=== PATIENT | male | born 1950 | race Caucasian/White ===

== ENCOUNTER 2019-11-08 11:11 | Observation (INO) | payer MEDICARE, SELFPAY ==
--- NOTE | ~2019-11-08 | XR_ITS ---
EXAMINATION: XR chest 1V portable DATE: 11/08/2019 12:26 INDICATION: Fever. TECHNIQUE: A single frontal view of the chest was obtained. COMPARISON: Chest 2 views 01/13/2014, chest CT 01/13/2014 FINDINGS: The chest demonstrates clear lungs without pneumonia, pleural effusion, or pneumothorax. Th e heart size is normal. IMPRESSION: 1. No acute cardiopulmonary disease. Reviewed, dictated and finalized at location A.
[2019-11-08 11:25] VITALS: BP 143/55; PULSE 100; RESP 18; TEMP 37.7; O2SAT 97
[2019-11-08 11:33] VITALS: BP 151/66; PULSE 103; RESP 20; TEMP 38.2; O2SAT 98
[2019-11-08 12:02] LABS: Basophils Absolute Auto 0.1 K/mm3 (0.0-0.1); Basophils Percent Auto 0.3 % (0.2-1.2); Eosinophils Percent Auto 0.3 % (0-4.4); Hematocrit 43.8 % (42.0-52.0); Hemoglobin 14.2 g/dL (14.0-18.0); Immature Granulocyte Absolute 0.12 K/mm3 (0.00-0.031); Immature Granulocyte Percent A 0.8 % (0-0.5); Lymphocytes Absolute Auto 0.44 K/mm3 (0.9-3.2); Lymphocytes Percent Auto 3.1 % (18.3-44.2); Mean Corpuscular HGB Conc 32.4 g/dl (32-36); Mean Corpuscular Hemoglobin 27.9 pg (26-34); Mean Corpuscular Volume 86.1 fl (80-100); Monocytes Absolute Auto 0.8 K/mm3 (0.1-0.6); Monocytes Percent Auto 5.3 % (2.6-8.5); Neutrophils Absolute Auto 12.9 K/mm3 (1.3-6.7); Neutrophils Percent Auto 90.2 % (45.5-73.1); Platelet Count Result 210 k/mm3 (150-375); Red Blood Count 5.09 M/mm3 (4.6-6.20); Red Cell Distribution Width 13.8 % (11.5-14.5); White Blood Count 14.3 K/mm3 (4.5-10.0)
[2019-11-08 12:12] LABS: INR 1.1; Prothrombin Time 13.5 Seconds (11.1-14.7)
[2019-11-08 12:13] LABS: Partial Thromboplastin Time 23.4 SECONDS (22.3-36.8)
[2019-11-08 12:17] LABS: Lactic Acid Reflex 2.2 mmol/L (0.7-2.1)
[2019-11-08 12:20] LABS: Alanine Aminotransferase 28 U/L (4-50); Albumin Level 3.8 g/dL (3.5-5.1); Alkaline Phosphatase 92 U/L (38-126); Aspartate Amino Transferase 28 U/L (17-59); Bilirubin,Total 0.4 mg/dL (0.2-1.3); Blood Urea Nitrogen 19 mg/dL (9-20); CRP 0.8 mg/dL (<1.0); Calcium 8.8 mg/dL (8.4-10.2); Carbon Dioxide 24 mmol/L (22-30); Chloride 103 mmol/L (98-107); Estimated CRCL calculation 57 ml/min; Estimated Glomerular Filt Rate > 60; Glucose 163 mg/dL (75-110); Sodium 135 mmol/L (137-145)
--- NOTE | 2019-11-08 12:50 | ED.GENADULT ---
HPI - General Adult General Chief complaint: Fever Stated complaint: fever Time Seen by Provider: 11/08/19 12:21 History of Present Illness HPI narrative: Patient is a 69 y/o male complaining of fever starting this morning. He states that he was driving and notice shaking chills. He went home and checked his temperature, which was 102.2. He took Ibuprofen, which relieved his chills. He denies any cough, sore throat, vomiting, diarrhea or dysuria. He denies any pain. Related Data Allergies Allergy/AdvReac Type Severity Reaction Status Date / Time No Known Allergies Allergy Unverified 01/13/14 21:16 Review of Systems Constitutional: Constitutional: Reports chills, Reports fever(s), Denies headache(s) and Denies weakness Eyes: Eyes: Denies blurry vision ENT: Denies headache(s) and Denies neck pain Cardiovascular: Cardiovascular: Denies chest pain and Denies dyspnea Respiratory: Respiratory: Denies cough and Denies dyspnea Gastrointestinal: Gastrointestinal: Denies abdominal pain, Denies diarrhea, Denies nausea and Denies vomiting Genitourinary: Genitourinary: Denies hematuria and Denies dysuria Musculoskeletal: Musculoskeletal: Denies back pain and Denies neck pain Neurologic: Denies headache(s) and Denies weakness PMFSH Family History Family History Mother Patient's mother is , Onset Age: 91 Father Carcinoma of colon, Onset Age: 84 Family history of lung cancer, Onset Age: 84 Family history of primary malignant neoplasm of liver, Onset Age: 84 Family history of malignant neoplasm of bone, Onset Age: 84 Social History Social History Smoking status: Never smoker Alcohol intake: current Gender identity (if verbalized by the patient): Male Exam Const: General: no acute distress and well developed Orientation/consciousness: oriented to person, oriented to place, oriented to time and patient oriented x3 HENMT: Head: normocephalic Ears: external ears normal General nose exam: Normal external nose present Eyes: General: appearance normal, both eyes and all related structures Conjunctivae: conjunctivae normal Neck: Neck: normal visual inspection and full ROM Chest: Chest palpation & inspection: normal inspection of the chest and no tenderness Resp: Effort & Inspection: normal respiratory effort Auscultation: clear to auscultation bilaterally Cardio: Rate: regular rate Rhythm: regular rhythm GI: GI Palp: No abdominal tenderness and Yes Soft to palpation Skin: General skin exam: normal color and turgor normal Neuro: General: oriented to person, oriented to place, oriented to time and patient oriented x3 Cognition (Neuro): normal cognition Extrem: General: normal to inspection, full ROM and no pedal edema Psych: Appearance: grossly normal Mental Status: mental status grossly normal Affect: normal affect Course Consultations Consultation #1: Discussed with VIRGIL Muñiz, who agrees to admit to Dr. Saavedra Date: 11/08/19 Time: 12:58 Vital Signs Vital signs: Vital Signs Temperature 37.7 C H 11/08/19 11:25 Pulse Rate 100 11/08/19 11:25 Respiratory Rate 18 11/08/19 11:25 Blood Pressure 143/55 H 11/08/19 11:25 Pulse Oximetry 97 11/08/19 11:25 Temperature 38.2 C H 11/08/19 11:33 Pulse Rate 103 H 11/08/19 11:33 Respiratory Rate 20 11/08/19 11:33 Blood Pressure 151/66 H 11/08/19 11:33 Pulse Oximetry 98 11/08/19 11:33 Medical Decision Making Vital Signs Vital Signs: Vital Signs Temperature 37.7 C H 11/08/19 11:25 Pulse Rate 100 11/08/19 11:25 Respiratory Rate 18 11/08/19 11:25 Blood Pressure 143/55 H 11/08/19 11:25 Pulse Oximetry 97 11/08/19 11:25 Temperature 38.2 C H 11/08/19 11:33 Pulse Rate 103 H 11/08/19 11:33 Respiratory Rate 20 11/08/19 11:33 Blood Pressure 151/66 H 11/08/19 11:33 Puls
[2019-11-08] MEDS: ACETAMINOPHEN 325 MG TABLET 650 MG PO (12:57)
[2019-11-08 14:00] LABS: Add Urine Microscopic? YES; Appearance Urine Clear (Clear); Bacteria Urine Trace /hpf; Bilirubin Urine Negative (Negative); Blood Urine Negative (Negative); Color Urine Yellow (Yellow); Glucose Urine UA 1+ mg/dL (Negative); Ketones Urine Negative (Negative); Leukocyte Esterase Ur Negative LEU/UL (Negative); Mucus Urine Rare /lpf; Nitrate Urine Negative (Negative); Protein Urine Negative (Negative); RBC Urine 0-2 /hpf (0-2); Specific Grav Ur 1.018 (1.001-1.035); Urobilinogen Urine Negative mg/dL (<2.0); WBC Urine 0-3 /hpf
[2019-11-08 14:50] VITALS: BP 126/56; PULSE 73; RESP 16; TEMP 37; O2SAT 98
[2019-11-08 15:09] LABS: Reflex Lactic Acid Yes or No Add Lactic
[2019-11-08 15:40] VITALS: BMI 27.1
--- NOTE | 2019-11-08 15:46 | ADMGEN ---
This patient, Mitlu Hernandez, was admitted to [facility] Surg Room 323-01. Patient/family oriented to hospital policies and general routines including ID bracelet, bed and alarms, visiting hours, pain management, procedures, bathroom and other care routines, personal items, smoking policy, room service/diet, and visiting hours. Valuables list has been completed. Information on how to activate the Rapid Response Team has been discussed. Patient/Family are encouraged to report perceived risks to care and to ask questions if they do not understand what they are told or what they should do.
--- NOTE | 2019-11-08 16:21 | PM.IMHP ---
H&P: HPI History of Present Illness Chief complaint: sepsis Narrative: Mitul Hernandez is a 69 year old male Who has a history of hyperlipidemia and diabetes. The patient did not fill before today. He had not been around any ill contacts. The patient stated that he surge to drive this morning and he felt very shaky and fell he is running a fever chills as well. The patient turned his car around and drove back from [place] to his home. Patient stated that he has been trying to use social isolation. The patient stated that once he was at home and checked his temperature was 102.2?. Six some ibuprofen in the chills were relieved and shakiness was relieved as well. Patient denies any cough he has no nausea no vomiting no diarrhea no abdominal pain no urinary symptoms no skin rashes or lesions or ulcerations. He denies any discomfort. His blood sugar was 163. The patient called his primary care doctor who instructed the patient to come to the emergency room. Chest x-ray was negative. Urinalysis was negative. His white count was noted to be 14.3. His influenza swab was negative. Patient is being tested for covid 19. The patient was given Tylenol and IV fluids in the emergency room. He was given a 1 time dose of Rocephin. Date of service 11/08/2019 blood cultures are pending. Review of Systems Review of Systems: All systems reviewed & are unremarkable except as noted in HPI and below Constitutional: Constitutional: Reports as per HPI and Reports no additional constitutional complaints Eyes: Eyes: Reports as per HPI and Reports no additional eye complaints ENT: Reports system reviewed and no additional complaints, except as documented and Reports Normal hearing present Cardiovascular: Cardiovascular: Reports no additional cardiovascular complaints Respiratory: Respiratory: Reports no additional respiratory complaints and Reports no additional respiratory complaints Gastrointestinal: Gastrointestinal: Reports as per HPI and Reports no additional gastrointestinal complaints Musculoskeletal: Musculoskeletal: Reports no additional musculoskeletal complaints Integumentary/Breasts: Skin/Breast: Reports system reviewed and no additional complaints, except as docu and Reports as per HPI Neurologic: Reports system reviewed and no additional complaints, except as documented, Reports as per HPI and Reports Normal hearing present Psychiatric: Psychiatric: Reports no additional psychiatric complaints and Reports as per HPI Endocrine: Endocrine: Reports no additional endocrine complaints Hematologic/Lymphatic: Hematologic/Lymphatic: Reports no additional hematologic/lymphatic complaints Allergic/Immunologic: Allergic/Immunologic: Reports no additional allergic/immunologic complaints [facility] Surgical History Surgical History (Updated 11/08/19 @ 16:32 by Mary Kay Hammond NP) No pertinent past surgical history Family History Family History Mother Patient's mother is , Onset Age: 91 Father Carcinoma of colon, Onset Age: 84 Family history of lung cancer, Onset Age: 84 Family history of primary malignant neoplasm of liver, Onset Age: 84 Family history of malignant neoplasm of bone, Onset Age: 84 Social History Social History (Updated 11/08/19 @ 16:34 by Mary Kay Hammond NP) Social History: 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 The patient desires to be a full code. He has 1 daughter. The patient is a lifelong nonsmoker. He does not use marijuana or illicit drugs. He does socially drink a beer occasionally. Smoking status: Never smoker Alcohol intake: current Drinks per week: 2 Substance use: never Gender identity (if verbalized by the patient): Male Spiritual care concerns: No Meds Home Medications an
[2019-11-08 18:00] VITALS: BP 152/66; PULSE 73; RESP 18; TEMP 37.4; O2SAT 96
[2019-11-08 18:25] LABS: Glucose Point of Care 156 (65-105)
[2019-11-08 22:00] VITALS: BP 149/66; PULSE 68; RESP 18; TEMP 37; O2SAT 98
[2019-11-09 00:11] LABS: SARS-CoV-2 RNA PCR Negative
[2019-11-09 02:00] VITALS: BP 153/64; PULSE 60; RESP 16; TEMP 36.7; O2SAT 98
[2019-11-09 06:00] VITALS: BP 164/74; PULSE 62; RESP 16; TEMP 36.8; O2SAT 100
[2019-11-09 06:03] LABS: Basophils Percent Auto 0.3 % (0.2-1.2); Eosinophils Absolute Auto 0.1 K/mm3 (0-0.3); Eosinophils Percent Auto 1.5 % (0-4.4); Hematocrit 40.6 % (42.0-52.0); Hemoglobin 12.7 g/dL (14.0-18.0); Immature Granulocyte Absolute 0.07 K/mm3 (0.00-0.031); Immature Granulocyte Percent A 0.9 % (0-0.5); Lymphocytes Absolute Auto 0.88 K/mm3 (0.9-3.2); Lymphocytes Percent Auto 11.8 % (18.3-44.2); Mean Corpuscular HGB Conc 31.3 g/dl (32-36); Mean Corpuscular Hemoglobin 27.3 pg (26-34); Mean Corpuscular Volume 87.1 fl (80-100); Mean Platelet Volume 9.6 fl (7.4-10.4); Monocytes Absolute Auto 0.5 K/mm3 (0.1-0.6); Monocytes Percent Auto 7.2 % (2.6-8.5); Neutrophils Absolute Auto 5.9 K/mm3 (1.3-6.7); Neutrophils Percent Auto 78.3 % (45.5-73.1); Platelet Count Result 176 k/mm3 (150-375); Red Blood Count 4.66 M/mm3 (4.6-6.20); Red Cell Distribution Width 14.1 % (11.5-14.5); White Blood Count 7.5 K/mm3 (4.5-10.0)
[2019-11-09 06:24] LABS: Alanine Aminotransferase 27 U/L (4-50); Albumin Level 3.2 g/dL (3.5-5.1); Alkaline Phosphatase 65 U/L (38-126); Aspartate Amino Transferase 24 U/L (17-59); Bilirubin,Total 0.3 mg/dL (0.2-1.3); Blood Urea Nitrogen 14 mg/dL (9-20); Calcium 8.7 mg/dL (8.4-10.2); Carbon Dioxide 27 mmol/L (22-30); Chloride 106 mmol/L (98-107); Estimated CRCL calculation 57 ml/min; Estimated Glomerular Filt Rate > 60; Glucose 150 mg/dL (75-110); Lipase 322 U/L (23-300); Magnesium 1.8 mg/dL (1.6-2.3); Potassium 4.9 mmol/L (3.4-5.0); Sodium 139 mmol/L (137-145)
[2019-11-09 06:48] LABS: CRP 4.4 mg/dL (<1.0)
[2019-11-09 09:13] LABS: Glucose Point of Care 145 (65-105)
[2019-11-09 09:19] LABS: Glucose Point of Care 155 (65-105)
[2019-11-09] MEDS: PIOGLITAZONE HCL 45 MG TABLET PO (10:26)
[2019-11-09] MEDS: ATORVASTATIN 40 MG TABLET PO (10:27)
[2019-11-09 11:49] LABS: Glucose Point of Care 234 (65-105)
[2019-11-09] MEDS: INSULIN ASPART (*BKC) 100 UNITS/ML SUB-Q (12:54)
[2019-11-09 14:18] VITALS: BP 150/72; PULSE 64; RESP 16; TEMP 36.9; O2SAT 100
--- NOTE | 2019-11-09 14:49 | PM.DS ---
DS: Admitting Diagnosis Admitting Diagnosis Admitting Diagnosis: Fever, unspecified DS: Discharge Diagnosis Discharge Diagnosis (1) Fever: Qualifiers: Fever type: unspecified Qualified Code(s): R50.9 - Fever, unspecified Code(s): R50.9 - Fever, unspecified Status: Acute Assessment and Plan: Etiology unknown. Could be viral. We have no source of an underlying infection, normal CXR, UA. Lactic acid was initially elevated but normalized and could be elevated secondary to dehydration vs virus. WBC normalized today from 14,300 to 7,500. Blood cultures show no growth. COVID was negative on arrival. The patient is completely asymptomatic at this time, without fever, chills, cough, shortness of breath, abdominal pain or any other concerning issues. The patient was bitten by two Ticks in August 2019 and reports intermittent itching to the area, but right now he has no symptoms related to the tick bites. The only abnormality to his labs from today is an elevation to his CRP which could be from COVID. His vital signs have otherwise been normal without any fever within 24 hours, tachycardia, normal respiratory rate, oxygenation 100% on room air and normal blood pressure. Informed the patient that he could still have COVID and his symptoms could be early and in a few days he could begin to have worsening symptoms. Told him he needs to check his temperature a few times per day and if he is not feeling well. If he develops a cough, shortness of breath, or worsening fever and chills he needs to call his doctor and possibly be evalauted again for COVID vs possible Lyme Disease or ehrlichiosis. Will have him follow up with his primary care provider within 1 week of discharge for further evaluation. (2) SIRS (systemic inflammatory response syndrome): Code(s): R65.10 - Systemic inflammatory response syndrome (SIRS) of non-infectious origin without acute organ dysfunction Status: Acute Assessment and Plan: Initially they said he met criteria for sepsis we have no underlying infection to treat. Sirs criteria met due to elevated lactic acidosis level, fever, leukocytosis but most likely due to a virus. He will not be given any antibiotics upon discharge and will have him follow-up with his primary care provider for further evaluation and treatment 1 week (3) Type 2 diabetes mellitus without complication, without long-term current use of insulin: Code(s): E11.9 - Type 2 diabetes mellitus without complications Status: Chronic Assessment and Plan: Serum glucose this morning was 150 the patient states because he is not taking his oral medication last night. Will have him continue his home medications at discharge. (4) Suspected COVID-19 virus infection: Code(s): Z20.828 - Contact with and (suspected) exposure to other viral communicable diseases Status: Acute Assessment and Plan: Initially the patient was placed in isolation, but COVID test came back negative. He was taken off of isolation. Informed the patient that he could be having early symptoms of COVID and still be negative at this time. He is asymptomatic we told him if he develops any worsening symptoms cough, shortness of breath, continue fevers he needs to be retested by his primary care provider or come to emergency department for further evaluation. (5) Dyslipidemia, goal LDL below 100: Code(s): E78.5 - Hyperlipidemia, unspecified Status: Chronic Assessment and Plan: continue with atorvastatin DS: Summary Hospital Course Reason for hospitalization: Patient is a 69 year old man with a history of diabetes, presented to the emergency ro
--- NOTE | 2019-11-15 11:14 | PC.NURSE ---
Blood cx is negative
--- NOTE | 2019-11-15 11:22 | PC.NURSE ---
Blood cx is negative.
== END 2019-11-09 16:40 | disposition home or self-care (01) ==
LOC: ANHED 13:05 → ANH3MEDSUR 13:34
PROVIDERS: General Practice; Nurse Practitioner; Physician Assistant; Admitting Provider Internal Medicine; Emergency Provider Emergency Medicine; PCP Internal Medicine; Visit Provider Family Medicine
DX: R50.9 Fever, unspecified (principal); R65.10 Systemic inflammatory response syndrome (SIRS) of non-infectious origin without acute organ dysfunction; Z20.828 Contact with and (suspected) exposure to other viral communicable diseases; D72.828 Other elevated white blood cell count; R79.82 Elevated C-reactive protein (CRP); R74.0 Nonspecific elevation of levels of transaminase and lactic acid dehydrogenase [LDH]; E78.5 Hyperlipidemia, unspecified; E11.9 Type 2 diabetes mellitus without complications; Z79.84 Long term (current) use of oral hypoglycemic drugs
CPT/HCPCS: 36415; 71045; 80053; 81001; 83605; 83690; 83735; 84443; 85025; 85610; 85730; 86140; 87040; 87635; 87804; 96361; 96365; 99285; A9270; C9803; G0378; J0696; J1815; J7120; U0003

== ENCOUNTER 2021-08-16 01:39 | Day surgery (SDC) | payer MEDICARE, SELFPAY ==
[2021-08-02 14:08] VITALS: BMI 27.3
--- NOTE | 2021-08-16 08:05 | P.PNAN_ITS ---
Anes - Initial Pre Proc Eval Procedure: Operation Date: 08/16/21 10:15 Proposed Procedures p Screening Colonoscopy - Pj Rodriguez MD Date/Time: 08/16/21 08:05 Surgeon: Pj Rodriguez MD Pre Op Diagnosis: family hx of colon ca Patient Data Age: 71 Gender: M Height: 1.68 m Weight: 77 kg Allergies Allergy/AdvReac Type Severity Reaction Status Date / Time No Known Allergies Allergy Verified 08/16/21 08:47 Home Medications Medication Instructions Recorded Confirmed Type blood sugar diagnostic #100 each 08/01/20 08/16/21 Rx lancets #100 each 08/07/20 08/16/21 Rx atorvastatin 40 mg tablet 40 mg PO DAILY #90 tablet 12/07/20 08/16/21 Rx glimepiride 1 mg tablet 1 mg PO QAM #90 tablet 02/14/21 08/16/21 Rx metformin 1,000 mg PO BID 08/02/21 08/16/21 History pioglitazone 45 mg tablet 45 mg PO DAILY #90 tablet 08/13/21 08/16/21 Rx Patient hx anesthesia problems: none Family hx anesthesia problems: none Results Review: All pre-operative results and documents have been reviewed as part of the pre-operative evaluation. [facility] Past Medical History Medical History (Updated 08/16/21 @ 08:06 by Talat Reyes MD) Dyslipidemia, goal LDL below 100 Overweight (BMI 25.0-29.9) Type 2 diabetes mellitus without complication, without long-term current use of insulin Surgical History Surgical History No pertinent past surgical history Family History Family History Mother Patient's mother is , Onset Age: 91 Father Carcinoma of colon, Onset Age: 84 Family history of lung cancer, Onset Age: 84 Family history of primary malignant neoplasm of liver, Onset Age: 84 Family history of malignant neoplasm of bone, Onset Age: 84 Social History Social History Social History: 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 The patient desires to be a full code. He has 1 daughter. The patient is a lifelong nonsmoker. He does not use marijuana or illicit drugs. He does socially drink a beer occasionally. Smoking status: Former smoker Tobacco type: cigarettes Alcohol intake: current Drinks per week: 4 Substance use: never Living arrangements: with family Gender identity (if verbalized by the patient): Male Spiritual care concerns: No Anes - Eval Final PreProcedure Day of Procedure 08/16/21 08:05 Patient weight: overweight Heart: regular rate and rhythm Lungs: clear to auscultation and normal air movement Airway: Mallampati scale class II Neurological: alert and oriented Last oral intake: >/= 8 hours ASA classification: III Emergent: no Anesthetic plan: proceed Anesthesia type and monitoring: general GIVS Results Review: All pre-operative results and documents have been reviewed as part of the pre-operative evaluation. Informed Consent: The patient's anesthetic plan and its attendant risks and benefits were discussed with the patient/family/POA. Questions were solicited and answers provided to the satisfaction of the patient/family/POA.
[2021-08-16 08:48] VITALS: BP 129/76; PULSE 65; RESP 15; TEMP 36.2; O2SAT 98; BMI 27.3
[2021-08-16] MEDS: LACTATED RINGERS 1,000 ML 150 ML IV CONT (09:04)
--- NOTE | 2021-08-16 09:14 | PM.HPGS ---
History of Present Illness History of Present Illness Consent: Risks, benefits, and alternatives have been discussed and questions answered. Patient agrees to proceed with procedure. Chief complaint: family hx of colon ca Narrative: Mitul Hernandez is a 71 year old male Referred for colon cancer screening. He has a family history of colon cancer. His father had colon cancer. Review of Systems Review of Systems: All systems reviewed & are unremarkable except as noted in HPI and below PMFSH Past Medical History Medical History Dyslipidemia, goal LDL below 100 Overweight (BMI 25.0-29.9) Type 2 diabetes mellitus without complication, without long-term current use of insulin Surgical History Surgical History No pertinent past surgical history Family History Family History Mother Patient's mother is , Onset Age: 91 Father Carcinoma of colon, Onset Age: 84 Family history of lung cancer, Onset Age: 84 Family history of primary malignant neoplasm of liver, Onset Age: 84 Family history of malignant neoplasm of bone, Onset Age: 84 Social History Social History Social History: 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 The patient desires to be a full code. He has 1 daughter. The patient is a lifelong nonsmoker. He does not use marijuana or illicit drugs. He does socially drink a beer occasionally. Smoking status: Former smoker Tobacco type: cigarettes Alcohol intake: current Drinks per week: 4 Substance use: never Living arrangements: with family Gender identity (if verbalized by the patient): Male Spiritual care concerns: No Meds Home Medications and Allergies Home Medications Medication Instructions Recorded Confirmed Type blood sugar diagnostic #100 each 08/01/20 08/16/21 Rx lancets #100 each 08/07/20 08/16/21 Rx atorvastatin 40 mg tablet 40 mg PO DAILY #90 tablet 12/07/20 08/16/21 Rx glimepiride 1 mg tablet 1 mg PO QAM #90 tablet 02/14/21 08/16/21 Rx metformin 1,000 mg PO BID 08/02/21 08/16/21 History pioglitazone 45 mg tablet 45 mg PO DAILY #90 tablet 08/13/21 08/16/21 Rx Allergies Allergy/AdvReac Type Severity Reaction Status Date / Time No Known Allergies Allergy Verified 08/16/21 08:47 Vital Signs Vital Signs - 24 hr 08/16/21 08:48 Temperature 36.2 C L Pulse Rate 65 Respiratory Rate 15 Blood Pressure 129/76 Pulse Oximetry 98 Exam Resp: Auscultation: clear to auscultation bilaterally Cardio: Rate: regular rate Rhythm: regular rhythm GI: GI Palp: Yes Soft to palpation and No Tenderness to palpation present (GI) Assessment and Plan Assessment and plan (1) Colon cancer screening: Code(s): Z12.11 - Encounter for screening for malignant neoplasm of colon Status: Acute Assessment and Plan: Colonoscopy with possible biopsy or polypectomy or cautery or injection of substances.
[2021-08-16 09:38] LABS: Glucose Point of Care 114 mg/dl (65-105)
[2021-08-16 10:24] VITALS: BP 141/76; PULSE 67; RESP 22; O2SAT 96
[2021-08-16 10:34] VITALS: BP 122/77; PULSE 70; RESP 20; O2SAT 100
[2021-08-16 10:44] VITALS: BP 155/87; PULSE 51; RESP 17; O2SAT 100
== END 2021-08-16 10:54 | disposition home or self-care (01) ==
PROVIDERS: PCP Internal Medicine; Visit Provider Internal Medicine Gastroenterology
PROC: 0DJD8ZZ Inspection of Lower Intestinal Tract, Via Natural or Artificial Opening Endoscopic (ICD-10-PCS; CPT 45378; principal; 2021-08-16 10:15)
DX: Z12.11 Encounter for screening for malignant neoplasm of colon (principal); K62.1 Rectal polyp; K57.30 Diverticulosis of large intestine without perforation or abscess without bleeding; Z80.0 Family history of malignant neoplasm of digestive organs; E11.9 Type 2 diabetes mellitus without complications; E78.5 Hyperlipidemia, unspecified; Z87.891 Personal history of nicotine dependence; Z79.84 Long term (current) use of oral hypoglycemic drugs
CPT/HCPCS: 45380; 82948; 88305; J2704; J7120

== ENCOUNTER 2021-12-07 10:04 | Outpatient (CLI) | payer MEDICARE, SELFPAY ==
[2021-12-07 18:41] LABS: Anion Gap 8 mmol/L (8-16); Blood Urea Nitrogen 23 mg/dL (9-20); Calcium 9.1 mg/dL (8.4-10.2); Carbon Dioxide 29 mmol/L (22-30); Chloride 98 mmol/L (98-107); Estimated Glomerular Filt Rate 60; Glucose 207 mg/dL (65-110); Potassium 4.3 mmol/L (3.4-5.0); Sodium 135 mmol/L (137-145)
== END 2021-12-07 10:05 | disposition home or self-care (01) ==
PROVIDERS: PCP Family Medicine; Visit Provider Family Medicine
DX: I10 Essential (primary) hypertension (principal)
CPT/HCPCS: 36415; 80048

== ENCOUNTER 2022-04-01 09:05 | Outpatient (CLI) | payer MEDICARE, SELFPAY ==
[2022-04-01 18:53] LABS: Hemoglobin A1C 6.3 % (<5.7)
[2022-04-01 19:02] LABS: Alanine Aminotransferase 33 U/L (6-50); Albumin Level 3.9 g/dL (3.5-5.1); Alkaline Phosphatase 61 U/L (38-126); Anion Gap 6 mmol/L (8-16); Aspartate Amino Transferase 40 U/L (17-59); Bilirubin,Total 0.7 mg/dL (0.2-1.3); Blood Urea Nitrogen 23 mg/dL (9-20); Calcium 8.8 mg/dL (8.4-10.2); Carbon Dioxide 30 mmol/L (22-30); Chloride 102 mmol/L (98-107); Cholesterol 172 mg/dL (0-200); Estimated Glomerular Filt Rate 55; Glucose 112 mg/dL (65-110); HDL Direct 43 mg/dL; Potassium 4.1 mmol/L (3.4-5.0); Sodium 138 mmol/L (137-145); Triglycerides 136 mg/dL (<150)
[2022-04-01 19:02] LABS: Creatinine Urine 133.4 mg/dL
[2022-04-01 19:12] LABS: Microalbumin Urine Random 9.3 mg/L (0-16.7)
[2022-04-01 19:14] LABS: LDL Cholesterol Direct 94 mg/dL
[2022-04-01 19:46] LABS: Prostate Specific Antigen 1.5 ng/mL (< OR = 4.0)
== END 2022-04-01 09:06 | disposition home or self-care (01) ==
LOC: ANHGOSHLAB 09:10
PROVIDERS: PCP Family Medicine; Visit Provider Family Medicine
DX: E11.9 Type 2 diabetes mellitus without complications (principal); Z13.220 Encounter for screening for lipoid disorders; Z12.5 Encounter for screening for malignant neoplasm of prostate; Z13.228 Encounter for screening for other metabolic disorders
CPT/HCPCS: 36415; 80053; 80061; 82043; 83036; 84153; G0103

== ENCOUNTER 2022-08-07 09:41 | Outpatient (CLI) | payer MEDICARE, SELFPAY ==
[2022-08-07 20:42] LABS: Alanine Aminotransferase 34 U/L (6-50); Aspartate Amino Transferase 34 U/L (17-59)
== END 2022-08-07 09:42 | disposition home or self-care (01) ==
LOC: ANHGOSHLAB 09:44
PROVIDERS: PCP Family Medicine; Visit Provider Podiatrist Foot & Ankle Surgery
DX: B35.1 Tinea unguium (principal)
CPT/HCPCS: 36415; 84450; 84460

== ENCOUNTER 2023-03-12 08:33 | Outpatient (CLI) | payer MEDICARE, SELFPAY ==
[2023-03-12 12:13] LABS: Alanine Aminotransferase 25 U/L (6-50); Albumin Level 3.9 g/dL (3.5-5.1); Alkaline Phosphatase 53 U/L (38-126); Anion Gap 10 mmol/L (8-16); Aspartate Amino Transferase 40 U/L (17-59); Bilirubin,Total 0.7 mg/dL (0.2-1.3); Blood Urea Nitrogen 19 mg/dL (9-20); Calcium 9.5 mg/dL (8.4-10.2); Carbon Dioxide 28 mmol/L (22-30); Chloride 101 mmol/L (98-107); Cholesterol 149 mg/dL (0-200); Estimated Glomerular Filt Rate 60; Glucose 82 mg/dL (65-110); HDL Direct 42 mg/dL; Potassium 4.5 mmol/L (3.4-5.0); Sodium 139 mmol/L (137-145); Triglycerides 89 mg/dL (<150)
[2023-03-12 12:25] LABS: LDL Cholesterol Direct 76 mg/dL
[2023-03-12 12:41] LABS: Creatinine Urine 134.4 mg/dL
[2023-03-12 12:43] LABS: Hemoglobin A1C 5.3 % (<5.7); MALB Creatinine Ratio 7.1 mg/g (0-30); Microalbumin Urine Random 9.6 mg/L (0-16.7)
[2023-03-12 12:44] LABS: Prostate Specific Antigen 1.9 ng/mL (< OR = 4.0)
== END 2023-03-12 08:34 | disposition home or self-care (01) ==
PROVIDERS: PCP Family Medicine; Visit Provider Family Medicine
DX: Z12.5 Encounter for screening for malignant neoplasm of prostate (principal); E78.5 Hyperlipidemia, unspecified; Z13.228 Encounter for screening for other metabolic disorders; E11.9 Type 2 diabetes mellitus without complications; I10 Essential (primary) hypertension; Z13.29 Encounter for screening for other suspected endocrine disorder
CPT/HCPCS: 36415; 80053; 80061; 82043; 83036; 84153; 84443; G0103

== ENCOUNTER 2024-08-13 08:06 | Outpatient (CLI) | payer MEDICARE, SELFPAY ==
--- OUTSIDE RECORDS SUMMARY | 2024-08-13 08:13 | XMS_ITS | Clinical Summary ---
Author Organization [facility] Address [address] [facility] Attn: Epic Prelude ADT JEZ CHINO [address] Care Team Providers Care Lipcoat Sprayer Name Role Phone Unavailable Primary Care Provider Unavailabl e Immunizations Immunization Administration Dates Next Due INFLUENZA VACCINE HIGH DOSE QUADRIVALENT 65 YR UP PF IM 02/14/2023,02/08/2022 INFLUENZA VACCINE HIGH DOSE TRIVALENT SPLIT VIRUS, (65 YR UP), 0.5ML (PF), IM 02/06/2024 Social History Tobacco Use Types Packs/Day Years Used Date Smoking Tobacco: Never Assessed Sex and Gender Information Value Date Recorded Sex Assigned at Not on file Legal Sex Male 3:27 PM CDT Gender Identity Not on file Sexual Orientation Not on file Plan of Treatment Health Maintenance Due Date Last Done Comments DTAP/TDAP/TD VACCINES (1 - Tdap) 02/10/1971 COLORECTAL SCREENING 02/10/1997 Colorectal Cancer Screening 02/10/1997 FIT-DNA Q 3 years 02/10/1997 FIT/FOBT Q 1 year 02/10/1997 Flex Sig/CT Colonography Q 5 years 02/10/1997 PNEUMOCOCCAL VACCINE 50+ YEA RS (1 of 1 - PCV) 02/10/2002 ZOSTER VACCINE (1 of 2) 02/10/2002 RSV VACCINE (60+ or ) (1 - 1-dose 75+ series) 02/10/2027 INFLUENZA VACCINE Completed 02/06/2024, , 02/08/2022 Insurance RX ALLWIN DATA Medicare Part B
[2024-08-13 18:47] LABS: Alanine Aminotransferase 24 U/L (6-50); Albumin Level 3.8 g/dL (3.5-5.1); Alkaline Phosphatase 62 U/L (38-126); Anion Gap 6 mmol/L (4-12); Aspartate Amino Transferase 37 U/L (17-59); Bilirubin,Total 0.8 mg/dL (0.2-1.3); Blood Urea Nitrogen 24 mg/dL (9-20); Calcium 9.1 mg/dL (8.4-10.2); Carbon Dioxide 30 mmol/L (22-30); Chloride 102 mmol/L (98-107); Cholesterol 133 mg/dL (0-200); Estimated Glomerular Filt Rate 55; Glucose 74 mg/dL (65-110); HDL Direct 34 mg/dL; Potassium 4.6 mmol/L (3.4-5.0); Sodium 138 mmol/L (137-145); Triglycerides 84 mg/dL (<150)
[2024-08-13 18:59] LABS: LDL Cholesterol Direct 70 mg/dL
[2024-08-13 19:05] LABS: Hemoglobin A1C 6.1 % (<5.7)
[2024-08-13 19:17] LABS: Prostate Specific Antigen 1.7 ng/mL (< OR = 4.0)
[2024-08-13 19:36] LABS: Creatinine Urine 118.5 mg/dL
[2024-08-13 19:40] LABS: MALB Creatinine Ratio 6.9 mg/g (0-30); Microalbumin Urine Random 8.2 mg/L (0-16.7)
== END 2024-08-13 08:07 | disposition home or self-care (01) ==
LOC: ANHGOSHLAB 08:08
PROVIDERS: PCP Internal Medicine; Visit Provider Internal Medicine
DX: E78.5 Hyperlipidemia, unspecified (principal); Z12.5 Encounter for screening for malignant neoplasm of prostate; Z13.228 Encounter for screening for other metabolic disorders; E11.9 Type 2 diabetes mellitus without complications
CPT/HCPCS: 36415; 80053; 80061; 82043; 83036; 84153; G0103

== ENCOUNTER 2025-02-24 09:55 | Outpatient (CLI) | payer MEDICARE, SELFPAY ==
--- OUTSIDE RECORDS SUMMARY | 1999-04-05 08:30 | XMS_ITS | Continuity of Care Document ---
Author Organization [facility] Address [address] [place] [address] [place] [address] Phone Care Team Providers Care Clinical Laboratory Aide Name Role Phone Unavailable Unavailable Unavailable Advance Directives Directive Yes / No Effective Date File Name No Information Encounters Encounter Description Practice Location Reason(s) For Visit Diagnoses Date Provider Providers Copied on [facility], [id number] [place] [address] [address], [place], [place], [id number], [place] tel:[phone] [facility] No Information Mar-199 9 No Information Family History Family Member Type Diagnosis Age At Onset No Information Payers Payer name Insurance type Covered constitution party ID Authoriza tion(s) No Information Social History Type Description Quantity Date Captured Comments Sex Male Smoking Status No Information Chief Complaint And Reason For Visit No Information Reason For Referral Reason For Referral No Information History Of Present Illness Encounter Date Complaint History Of Prese nt Illness No Information Functional Status Date Functional Assessmen t No Information Instructions Date Instruction Additional Infor mation No Information Assessments Type Assessment Date No Information Patient Care Teams Name Effective Dates (start - stop) Status Members No Information
[2025-02-24 13:02] LABS: Hematocrit 46.2 % (42.0-52.0); Hemoglobin 14.4 g/dL (14.0-18.0); Immature Granulocyte Percent A 0.4 % (0-0.5); Lymphocytes Absolute Auto 1.51 K/mm3 (0.9-3.2); Mean Corpuscular HGB Conc 31.2 g/dl (32-36); Mean Corpuscular Hemoglobin 27.6 pg (26-34); Mean Corpuscular Volume 88.5 fl (80-100); Nucleated Red Blood Cells Absolute Auto 0.000 K/mm3 (0.0-0.012); Nucleated Red Blood Cells Perc 0.0 % (0.0-0.2); Platelet Count Result 202 k/mm3 (150-375); Red Blood Count 5.22 M/mm3 (4.6-6.20); White Blood Count 9.1 K/mm3 (4.5-10.0)
[2025-02-24 13:04] LABS: Alanine Aminotransferase 28 U/L (6-50); Albumin Level 4.1 g/dL (3.5-5.1); Alkaline Phosphatase 86 U/L (38-126); Anion Gap 7 mmol/L (4-12); Aspartate Amino Transferase 35 U/L (17-59); Bilirubin,Total 0.8 mg/dL (0.2-1.3); Blood Urea Nitrogen 24 mg/dL (9-20); Calcium 9.3 mg/dL (8.4-10.2); Carbon Dioxide 28 mmol/L (22-30); Chloride 98 mmol/L (98-107); Estimated Glomerular Filt Rate 48; Glucose 222 mg/dL (65-110); Potassium 4.5 mmol/L (3.4-5.0); Sodium 133 mmol/L (137-145); Total Protein 6.7 g/dL (6.3-8.2)
[2025-02-24 13:53] LABS: Ferritin 36.90 ng/mL (11.1-264)
[2025-02-24 14:37] LABS: Vitamin B12 292.0 pg/mL (239-931)
--- OUTSIDE RECORDS SUMMARY | 2025-02-24 18:19 | XMS_ITS | Clinical Summary ---
Author Organization [facility] Address [address] [facility] Attn: Epic Prelude ADT JEZ CHINO [address] Care Team Providers Care Emergency Department Name Role Phone Unavailable Primary Care Provider Unavailabl e Immunizations Immunization Administration Dates Next Due (PREVNAR 20)(6 WKS UP) PNEUM OCOCCAL CONJUGATE VACCINE 20-VALENT (PCV20), POLYSACCHARIDE ORY113 CONJUGATE, ADJUVANT 0.5 ML (PF) IM 01/27/2025 INFLUENZA VACCINE HIGH DOSE QUADRIVALENT 65 YR UP PF IM 02/14/2023,02/08/2022 INFLUENZA VACCINE HIGH DOSE TRIVALENT SPLIT VIRUS, (65 YR UP), 0.5ML (PF), IM 01/27/2025,02/06/2024 Social History Tobacco Use Types Packs/Day Years [...] Flex Sig/CT Colonography Q 5 years 02/10/1997 ZOSTER VACCINE (1 of 2) 02/10/2002 RSV VACCINE (60+ or ) (1 - 1-dose 75+ series) 02/10/2027 INFLUENZA VACCINE Completed 01/27/2025, , 02/14/2023, Additional history exists PNEUMOCOCCAL VACCINE 50+ YEARS Completed 01/27/2025 Insurance RX ALLWIN DATA Medicare Part B
[2025-02-24 18:20] LABS: Hemoglobin A1C 6.1 % (<5.7)
== END 2025-02-24 09:56 | disposition home or self-care (01) ==
PROVIDERS: PCP Internal Medicine; Visit Provider Internal Medicine
DX: D64.9 Anemia, unspecified (principal); I10 Essential (primary) hypertension; E11.9 Type 2 diabetes mellitus without complications; Z11.59 Encounter for screening for other viral diseases
CPT/HCPCS: 36415; 80053; 82607; 82728; 82746; 83036; 85025; 86803

== ENCOUNTER 2025-03-31 09:02 | Outpatient (CLI) | payer MEDICARE, SELFPAY ==
[2025-03-31 18:41] LABS: Add Urine Microscopic? NO; Appearance Urine Clear (Clear); Glucose Urine UA Negative (Negative); Leukocyte Esterase Ur Negative LEU/UL (Negative); Nitrate Urine Negative (Negative); Specific Grav Ur 1.018 (1.001-1.035)
[2025-03-31 19:02] LABS: Anion Gap 6 mmol/L (4-12); Blood Urea Nitrogen 23 mg/dL (9-20); Calcium 9.7 mg/dL (8.4-10.2); Carbon Dioxide 29 mmol/L (22-30); Chloride 99 mmol/L (98-107); Estimated Glomerular Filt Rate 49; Glucose 174 mg/dL (65-110); Potassium 4.5 mmol/L (3.4-5.0); Sodium 134 mmol/L (137-145)
[2025-03-31 19:40] LABS: Thyroid Stimulating Hormone 3.960 uIU/mL (0.465-4.680)
== END 2025-03-31 09:03 | disposition home or self-care (01) ==
PROVIDERS: PCP Internal Medicine; Visit Provider Internal Medicine
DX: N28.9 Disorder of kidney and ureter, unspecified (principal); E87.1 Hypo-osmolality and hyponatremia
CPT/HCPCS: 36415; 80048; 81003; 84443

== ENCOUNTER 2025-04-18 09:32 | Outpatient (CLI) | payer MEDICARE, SELFPAY ==
--- NOTE | ~2025-04-18 | US_ITS ---
US renal BI 04/18/2025 09:48 Procedure: Realtime transabdominal ultrasound of the kidneys and bladder. Indication: Hyponatremia. Hypoosmolality Comparison: No prior studies for comparison. Findings: Renal echotexture is normal bilaterally without hydronephrosis, contour deforming mass or renal calculus. The right kidney measures 9.7 cm and left kidney measures 9.9 cm. Bladder within normal limits. Impression: 1: Unremarkable renal ultrasound. No stones, masses or hydronephrosis. Reviewed, dictated and finalized at location O. ATE CLIENT ADVISOR Impression: 1: Unremarkable renal ultrasound. No stones, masses or hydronephrosis.
== END 2025-04-18 09:33 | disposition home or self-care (01) ==
LOC: GOSHIMG 09:33
PROVIDERS: PCP Internal Medicine; Visit Provider Internal Medicine
DX: E87.1 Hypo-osmolality and hyponatremia (principal); E11.9 Type 2 diabetes mellitus without complications; N28.9 Disorder of kidney and ureter, unspecified
CPT/HCPCS: 76770